=== PATIENT | male | born 1985 | race Two or more races ===

== ENCOUNTER 2016-03-21 08:42 | Emergency (ER) | payer MEDICAID ==
[~2016-03-21] VITALS: Ht 175.3 cm; Wt 167.8 kg
[~2016-03-21 08:42] MED LIST: FUROSEMIDE20 M1 ORAL
[2016-03-21 08:50] VITALS: BP 139/94
--- NOTE | 2016-03-21 09:10 | Emergency Room Report ---
History of Present Illness General Chief Complaint: Eye Problems Source: Patient Present Illness HPI Patient present with complaints of discomfort to the right eye Symptoms essentially started on Monday he was feeling some increased pressure in the right fore head Patient went to sleep and it better the next day however he felt pain more just behind the right eye He states that when the pain comes on he feels that his vision gets somewhat blurry He is able to close the eye and after a few minutes the vision has improved along with the discomfort Denies any bulging of his eye denies any other headache at this time denies any fall or trauma Denies any chemical exposure Allergies: Coded Allergies: No Known Allergies (Unverified , 01/19/14) Patient History Past Medical History: see triage record Pertinent Family History: none Reviewed Nursing Documentation: PMH: Agreed, PSxH: Agreed Nursing Documentation-PMH Hx Hypertension: Yes - NON-COMPLIANT WITH MEDS Review of Systems All Other Systems: negative except mentioned in HPI Physical Exam Vital Signs Date Time Temp Pulse Resp B/P Pulse Ox O2 Delivery O2 Flow Rate FiO2 03/21/16 08:44 98.4 77 16 142/93 97 Room Air Sp02 EP Interpretation: reviewed, normal General Appearance: well appearing, no apparent distress Head: normocephalic, atraumatic Eyes: bilateral eye EOMI, bilateral eye PERRL ENT: normal pharynx, no angioedema Neck: full range of motion, supple Respiratory: lungs clear Musculoskeletal: normal inspection Neurologic: normal inspection, alert, oriented x3, responsive, top ironer III-XII nml as tested Skin: no rash, warm/dry Lymphatic: no adenopathy Medical Decision Making Diagnostic Impression: Primary Impression: Eye problem Additional Impressions: Headache Blurry vision, right eye ER Course Given the patient's history and exam patient had a visual acuity of 20/20 on the right side as well No signs of any erythema or bulging of the right eye Clinically extraocular motors are intact as well Patient was discussed about possible sinus pathology as well he does have some sinus issues he states I do not feel that emergency CAT scan imaging of the brain would be appropriate Patient does not have any history of diabetes And at this time stable for close outpatient followup Last Vital Signs Date Time Temp Pulse Resp B/P Pulse Ox O2 Delivery O2 Flow Rate FiO2 03/21/16 08:50 98.0 92 16 139/94 99 Room Air Status: unchanged Disposition: HOME, SELF-CARE Condition: Stable Referrals: NOT CHOSEN IPA/MD,REFERRING (PCP) Additional Instructions: Patient is provided with the discharge instructions notified to follow up with primary doctor in the next 2-3 days otherwise return to the er with any worsening symptoms. SUE LEI D.O. Mar 21, 2016 09:10
[2016-03-21 09:14] VITALS: BP 139/94
== END 2016-03-21 09:14 | disposition home or self-care (01) ==
LOC: EMR 09:03
DX: H53.8 Other visual disturbances (principal); R51 Headache; I10 Essential (primary) hypertension; Z91.19 Patient's noncompliance with other medical treatment and regimen
CPT/HCPCS: 99282

== ENCOUNTER 2017-11-30 08:55 | Emergency (ER) | payer SELFPAY ==
[~2017-11-30] VITALS: Ht 167.6 cm; Wt 145.1 kg
[2017-11-30 09:08] VITALS: BP 161/106
[2017-11-30] MEDS ORDERED: Ketorolac 30mg Inj IM ONE (09:15)
[2017-11-30] MEDS ORDERED: Methocarbamol 750mg tab ORAL ONE (09:15)
--- NOTE | 2017-11-30 09:52 | Emergency Room Report ---
History of Present Illness General Chief Complaint: Pain Source: Patient Present Illness HPI 32-year-old male presents ED complaining of right leg pain. Started 3 days ago. Denies trauma. Notes pain in his right leg right thigh and lower back. Pain is dull/cramping, 9 out of 10, nonradiating. Denies any swelling. Denies any fevers or chills. Denies chest pain or shortness of breath. No other aggravating relieving factors. Denies any other associated symptoms Allergies: Coded Allergies: No Known Allergies (Unverified , 01/19/14) Patient History Past Medical History: HTN Past Surgical History: none Pertinent Family History: none Social History: Denies: smoking, alcohol use, drug use Immunizations: UTD Reviewed Nursing Documentation: PMH: Agreed; PSxH: Agreed Nursing Documentation-PMH Hx Hypertension: Yes Review of Systems All Other Systems: negative except mentioned in HPI Physical Exam Vital Signs Date Time Temp Pulse Resp B/P (MAP) Pulse Ox O2 Delivery O2 Flow Rate FiO2 11/30/17 09:03 98.8 87 22 161/106 96 Room Air 98.8 Sp02 EP Interpretation: reviewed, normal General Appearance: no apparent distress, alert, GCS 15, non-toxic, obese Head: normocephalic, atraumatic ENT: normal ENT inspection Neck: normal inspection Respiratory: chest non-tender, lungs clear, normal breath sounds, speaking full sentences Cardiovascular #1: normal inspection Gastrointestinal: normal inspection Rectal: deferred Genitourinary: no CVA tenderness Musculoskeletal: normal range of motion, no calf tenderness, other - paraspinal lumbar tenderness, tender - RLE Neurologic: alert, oriented x3, responsive, motor strength/tone normal, sensory intact, speech normal Psychiatric: normal inspection Skin: normal inspection Lymphatic: normal inspection Medical Decision Making Diagnostic Impression: Primary Impression: Muscle strain ER Course Hospital Course 32-year-old male presents with right leg and back pain. No trauma Differential diagnoses include: DVT, contusion, strain Clinical course Patient placed on stretcher after initial history, physical exam reveals an obese male in no acute distress. There is no obvious deformity or crepitus or bruising to the right lower extremity. No appreciable Swelling compared to the left side. However patient is morbidly obese at bedside they she is concerned about a blood clot. Asking for an ultrasound. I agreed to perform a duplex ultrasound here Doppler ultrasound shows no evidence of DVT Likely Strain. Reassurance given. will discharge with motrin, robaxin I. I feel this is a highly complex case requiring extensive working including EKG/Rhythm strip, Xray/CT/US, Blood/urine lab work, repeat exams while in ED, and administration of strong opiates/narcotics for pain control, admission to hospital or close patient follow up. Diagnosis - muscle strain Stable and discharged to home with Rx Tylenol #3, Robaxin. Followup with PMD. Return to ED if symptoms recur or worsen CT/MRI/US Diagnostic Results CT/MRI/US Diagnostic Results : Imaging Test Ordered: Duplex US Impression no evidence of DVT Last Vital Signs Date Time Temp Pulse Resp B/P (MAP) Pulse Ox O2 Delivery O2 Flow Rate FiO2 11/30/17 09:21 98.8 11/30/17 09:08 97 22 161/106 96 Room Air Status: improved Disposition: HOME, SELF-CARE Condition: Stable Scripts Methocarbamol* (ROBAXIN-750*) 750 Mg Tablet 750 MG PO TID, #21 TAB 0 Refills Prov: Jose Juan Bonilla MD 11/30/17 Acetaminophen With Codeine (T#3) (TYLENOL #3 TAB*) Y Tab 1 TAB ORAL Q8H PRN for For Pain, #20 TAB Prov: Jose Juan Bonilla MD 11/30/17 Referrals: NOT CHOSEN [facility]/,REFERRING (PCP) Jose Juan Bonilla MD Nov 30, 2017 09:52
[2017-11-30] MEDS ORDERED: ACETAMINOPHEN-1 EAC1 ORAL (10:41)
[2017-11-30] MEDS ORDERED: ROBAXIN-750750 MG PO (10:41)
[2017-11-30 10:50] VITALS: BP 58/98
--- NOTE | 2017-11-30 11:19 | Diagnostic Imaging Report ---
Indication: Right lower extremity pain and swelling. Technique: Duplex Doppler imaging performed from the right common femoral vein to the popliteal vein. FINDINGS: Normal compressibility demonstrated from the common femoral vein to the popliteal vein. Respiratory phasicity and good augmentation demonstrated on waveform analysis. There is no evidence of thrombosis. IMPRESSION: No evidence of deep venous thrombosis within the right lower extremity.
== END 2017-11-30 10:51 | disposition home or self-care (01) ==
LOC: EMR 09:15 → EDUNIT# 09:15 → EMR 10:51
DX: S76.911A Strain of unspecified muscles, fascia and tendons at thigh level, right thigh, initial encounter (principal); X58.XXXA Exposure to other specified factors, initial encounter; Y92.9 Unspecified place or not applicable; I10 Essential (primary) hypertension
CPT/HCPCS: 93971; 96372; 99283; J1885

== ENCOUNTER 2020-02-23 23:04 | Emergency (ER) | payer MEDICAID ==
[~2020-02-23] VITALS: Ht 175.3 cm; Wt 145.1 kg
[~2020-02-23 23:04] MED LIST changes: +ACETAMINOPHEN-1 EAC1 ORAL; +ROBAXIN-750750 MG PO
--- NOTE | 2020-02-23 23:15 | NUR ---
ED Nurse Note: Pt walked in c/o pain on his penis since 2 days ago. Pt stated "I may be have a tear, I notice bleeding". PT stated burning while urination, penial discharge. changed into gown; attached to monitor. patient ao4 with no acute distress. hypertensive. history of htn; non compliant with medication. all safety measures met.
[2020-02-23 23:20] VITALS: BP 188/119
--- NOTE | 2020-02-23 23:20 | NUR ---
ED Nurse Note: iv access established. blood an urine collected; sent down to lab.
--- NOTE | 2020-02-23 23:22 | Emergency Room Report ---
History of Present Illness General Chief Complaint: Male Urogenital Problems Source: Patient Present Illness HPI This is a 35-year-old male with a history of borderline diabetes and high blood pressure. He ran out of his blood pressure medication for a few months now. He also gained about 30 to 40 pounds in the last year. He presents with chief complaint of dysuria and pain to the foreskin. Is been ongoing for the last few days. Has a hard time retracting his foreskin. There is tearing in that area. Painful with urination. He also has polyuria, polydipsia and nocturia. Denies any fever or chills. Denies any discharge. He is not sexually active. Allergies: Coded Allergies: No Known Allergies (Unverified , 01/19/14) COVID-19 Screening Contact w/high risk pt: No Experienced COVID-19 symptoms?: No COVID-19 Testing performed SENIOR SALES ASSISTANT: No Patient History Past Medical History: see triage record, old chart reviewed, HTN Past Surgical History: none Pertinent Family History: none Social History: Denies: smoking Immunizations: other Reviewed Nursing Documentation: PMH: Agreed; PSxH: Agreed Nursing Documentation-PMH Hx Hypertension: Yes Review of Systems Eye: Denies: eye pain, blurred vision ENT: Denies: ear pain, nose congestion, throat swelling Respiratory: Denies: cough, shortness of breath Cardiovascular: Denies: chest pain, palpitations Gastrointestinal: Denies: abdominal pain, diarrhea, nausea, vomiting Genitourinary: Reports: dysuria, frequency, pain, urgency Musculoskeletal: Denies: back pain, joint pain Skin: Denies: rash Neurological: Denies: headache, numbness Endocrine: Denies: increased thirst, increased urine Hematologic/Lymphatic: Denies: easy bruising All Other Systems: negative except mentioned in HPI Physical Exam Vital Signs Date Time Temp Pulse Resp B/P (MAP) Pulse Ox O2 Delivery O2 Flow Rate FiO2 02/23/20 23:08 98.8 98 16 188/119 (142) 97 Room Air Vitals with high blood pressure Sp02 EP Interpretation: reviewed, normal General Appearance: well appearing, no apparent distress, alert, obese Head: normocephalic, atraumatic Eyes: bilateral eye PERRL, bilateral eye EOMI ENT: hearing grossly normal, normal pharynx Neck: full range of motion, supple, no meningismus Respiratory: chest non-tender, lungs clear, normal breath sounds Cardiovascular #1: regular rate, rhythm, no murmur Gastrointestinal: normal bowel sounds, non tender, no mass, no organomegaly, no bruit, non-distended Genitourinary: other - Patient is uncircumcised. Foreskin show irritation, skin tear, redness. Able to retract foreskin but very tender. Musculoskeletal: back normal, normal range of motion, gait/station normal Psychiatric: mood/affect normal Medical Decision Making Diagnostic Impression: Primary Impression: UTI (urinary tract infection) Qualified Codes: N30.00 - Acute cystitis without hematuria Additional Impressions: Balanitis Hypertension Qualified Codes: I10 - Essential (primary) hypertension Diabetes type 2, uncontrolled Qualified Codes: E11.65 - Type 2 diabetes mellitus with hyperglycemia Morbid obesity with BMI of 45.0-49.9, adult ER Course This patient presents with urinary complaint is consistent with UTI and balanitis. This probably secondary to his uncontrolled diabetes. He also has hypertension that is uncontrolled because he has been out of his medication. No evidence of endorgan damage. Will discharge home. Last Vital Signs Date Time Temp Pulse Resp B/P (MAP) Pulse Ox O2 Delivery O2 Flow Rate FiO2 02/23/20 23:08 98.8 98 16 188/119 (142) 97 Room Air Status: improved Disposition: HOME, SELF-CARE Condition: Stable Scripts Nystatin* (NYSTATIN*) 15 Gm Cream..g. 1 APPLIC TOPIC THREE TIMES A DAY, #15 GM Prov: Chuy Messina MD 02/24/20 Cephalexin* (KEFLEX*) 500 Mg Capsule 500 MG ORAL TID, #21 CAP Prov: Chuy Messina MD 02/24/20 Fluconazole* (DIFLUCAN*) 100 Mg Tablet 100 MG ORAL DAILY, #7 TAB Prov: Chuy Messina MD 02/24/20 Metformin Hcl* (METFORMIN HCL*) 500 Mg Tablet 500 MG ORAL TWICE A DAY, #180 TAB Prov: Chuy Messina MD 02/24/20 Lisinopril* (LISINOPRIL*) 40 Mg Tablet 40 MG ORAL DAILY for Hypertension, #90 TAB Prov: Chuy Messina MD 02/24/20 Patient Instructions: Urinary Tract Infection Additional Instructions: Follow-up with your doctor in 7 days for recheck. Return if symptoms worsen. Chuy Messina MD Feb 23, 2020 23:22
[2020-02-23 23:46] LABS: BASOPHILS % (AUTO) 1.5 % (0.0-2.0); EOSINOPHILS % (AUTO) 6.4 % (0.0-3.0); HEMATOCRIT 45.3 % (42.0-52.0); HEMOGLOBIN 16.9 G/DL (14.2-18.0); MEAN CORPUSCULAR VOLUME 78 FL (80-99); MONOCYTES % (AUTO) 10.6 % (1.0-10.0); NEUTROPHILS % (AUTO) 59.5 % (45.0-75.0); PLATELET COUNT 185 K/UL (150-450); RED BLOOD COUNT 5.78 M/UL (4.70-6.10); RED CELL DISTRIBUTION WIDTH 13.1 % (11.6-14.8); WHITE BLOOD COUNT 9.5 K/UL (4.8-10.8)
[2020-02-23 23:47] LABS: BILIRUBIN, URINE NEGATIVE (NEGATIVE); GLUCOSE, URINE (UA) 4+ (NEGATIVE); KETONES,URINE NEGATIVE (NEGATIVE); LEUKOCYTE ESTERASE ,URINE 3+ (NEGATIVE); NITRITE,URINE NEGATIVE (NEGATIVE); PH,URINE 5 (4.5-8.0); PROTEIN,URINE 3+ (NEGATIVE); UROBILINOGEN,URINE 4 MG/DL (0.0-1.0)
[2020-02-23 23:57] LABS: ANION GAP 8 mmol/L (5-15); BLOOD UREA NITROGEN 7 mg/dL (7-18); CALCIUM 8.4 MG/DL (8.5-10.1); CARBON DIOXIDE 25 MMOL/L (21-32); CHLORIDE 99 MMOL/L (98-107); SODIUM 132 MMOL/L (136-145)
[2020-02-23 23:58] LABS: APPEARANCE,URINE SLIGHTLY CLOUDY; COLOR,URINE YELLOW
[2020-02-24] MEDS ORDERED: NYSTATIN15 GM TOPIC (00:09)
[2020-02-24] MEDS ORDERED: METFORMIN HCL500 M1 ORAL (00:09)
[2020-02-24] MEDS ORDERED: CEPHALEXIN500 MG ORAL (00:09)
[2020-02-24] MEDS ORDERED: DIFLUCAN100 MG ORAL (00:09)
[2020-02-24] MEDS ORDERED: LISINOPRIL40 MG ORAL (00:09)
[2020-02-24] MEDS ORDERED: Insulin Human Regular 100units/ml 3ml SUBQ ONE (00:15)
[2020-02-24] MEDS ORDERED: cefTRIAXone 1 GM in NS 55 ML IVPB ONE (00:15)
[2020-02-24 00:45] VITALS: BP 145/67
--- NOTE | 2020-02-24 00:45 | NUR ---
ER DISCHARGE NOTE: Patient is cleared to be discharged per ERMD, pt is aox4, on room air, with stable vital signs. pt was given dc and prescription instructions, pt was able to verbalize understanding, pt id band and iv site removed without complications. pt is able to ambulate with steady gait. pt took all belongings.
== END 2020-02-24 00:45 | disposition home or self-care (01) ==
LOC: EMR 23:20
DX: N30.00 Acute cystitis without hematuria (principal); N48.1 Balanitis; I10 Essential (primary) hypertension; E11.65 Type 2 diabetes mellitus with hyperglycemia; E66.01 Morbid (severe) obesity due to excess calories; Z68.42 Body mass index [BMI] 45.0-49.9, adult
CPT/HCPCS: 36415; 80048; 81001; 85025; 87086; 96361; 96365; J0696; J7030; Z7502; 99284

== ENCOUNTER 2020-03-02 14:42 | Emergency (ER) | payer OTHER, MEDICAID ==
[~2020-03-02] VITALS: Ht 175.3 cm; Wt 149.7 kg
[~2020-03-02 14:42] MED LIST changes: +CEPHALEXIN500 MG ORAL; +DIFLUCAN100 MG ORAL; +LISINOPRIL40 MG ORAL; +METFORMIN HCL500 M1 ORAL; +NYSTATIN15 GM TOPIC
[2020-03-02] MEDS ORDERED: Ketorolac 30mg Inj IV ONE (15:15)
--- NOTE | 2020-03-02 15:16 | Emergency Room Report ---
History of Present Illness General Chief Complaint: Abdominal Pain Source: Patient Present Illness HPI 35-year-old male who is morbidly obese and has history of type 2 diabetes and hypertension currently taking medication here complaining of left-sided testicular, penile and suprapubic pain radiating to left lower quadrant and lower back x3 days. Patient was last seen in [place] ER 1 week ago for UTI and balanitis. Patient currently under treatment. Denies any fever chills, constipation, bloody stools, nausea vomiting diarrhea. Denies eating heavy objects. Patient appears to have guarding left lower quadrant. No obvious testicular swelling noted. Has not taken medication for symptom relief. Denies any penile discharge. Allergies: Coded Allergies: No Known Allergies (Unverified , 01/19/14) COVID-19 Screening Contact w/high risk pt: No Experienced COVID-19 symptoms?: No COVID-19 Testing performed REGISTERED VETERINARY TECHNICIAN: No Patient History Past Medical History: see triage record Past Surgical History: none Pertinent Family History: none Reviewed Nursing Documentation: PMH: Agreed; PSxH: Agreed Nursing Documentation-PMH Hx Hypertension: Yes Hx Diabetes: Yes Review of Systems All Other Systems: negative except mentioned in HPI Physical Exam Vital Signs Date Time Temp Pulse Resp B/P (MAP) Pulse Ox O2 Delivery O2 Flow Rate FiO2 03/02/20 14:47 98.8 95 19 132/84 (100) 98 Room Air Sp02 EP Interpretation: reviewed, normal General Appearance: mild distress Head: normocephalic, atraumatic Eyes: bilateral eye normal inspection, bilateral eye PERRL ENT: no angioedema Neck: full range of motion, supple/symm/no masses Respiratory: no respiratory distress, no retraction, no accessory muscle use Cardiovascular #1: regular rate, rhythm Gastrointestinal: no mass, no organomegaly, no peritonitis, no bruit, non- distended, no rebound, guarding - Left lower quadrant Genitourinary: no CVA tenderness Musculoskeletal: back normal Neurologic: alert, motor strength/tone normal, oriented x3, sensory intact, responsive, speech normal Psychiatric: judgement/insight normal, memory normal, mood/affect normal, no suicidal/homicidal ideation Skin: no rash Lymphatic: no adenopathy Medical Decision Making PA Attestation All diagnoses and treatment plans were reviewed and discussed with my supervising physician Dr. Joshi Diagnostic Impression: Primary Impression: Lymphadenopathy, inguinal Additional Impression: Diverticulosis ER Course 35-year-old male who is morbidly obese and has history of type 2 diabetes and hypertension currently taking medication here complaining of left-sided testicular, penile and suprapubic pain radiating to left lower quadrant and lower back x3 days. Patient was last seen in [place] ER 1 week ago for UTI and balanitis. Patient currently under treatment. Denies any fever chills, constipation, bloody stools, nausea vomiting diarrhea. Denies eating heavy objects. Patient appears to have guarding left lower quadrant. No obvious testicular swelling noted. Has not taken medication for symptom relief. Denies any penile discharge. Ddx considered but are not limited to: appendicitis, cholecystis, gastritis, gastroenteritis, UTI, pyelonephritis, SBO, diverticulitis, pancreatitis, epididymitis, inguinal hernia, reducible inguinal hernia Vital signs: are WNL, pt. is afebrile H&PE are most consistent with: Inguinal lymphadenopathy, diverticulosis without diverticulitis ORDERS: abdominal CT, abdominal pain set, scrotal ultrasound, ibuprofen ED INTERVENTIONS: Toradol DISCHARGE: At this time pt. is stable for d/c to home. Will provide printed patient care instructions, and any necessary prescriptions. Care plan and follow up instructions have been discussed with the patient prior to discharge. Take medication as directed, avoid lifting heavy objects, follow primary care provider for further evaluation, if worsening symptoms return to the emergency room at this time lymphadenopathy can be due to inflammatory disease versus infectious versus metastatic concern which need to follow-up with your primary doctor in this regard. Increase fiber intake CT/MRI/US Diagnostic Results CT/MRI/US Diagnostic Results #1: Imaging Test Ordered: Scrotal ultrasound Impression Comparison: Reference made to CT scan performed subsequently Findings:The right testicle measures 3.9cm in length. It demonstrates normal echogenicity. Normal Doppler flow. Normal epididymis. There is questionably a minimal varicocele. There is a small hydrocele The left testicle measures 4.1 cm in length. It demonstrates normal echogenicity and normal Doppler flow. Normal epididymis. Questionable minimal varicocele. There is a small hydrocele A large lymph node is seen in the left inguinal region, measuring 4 x 2 x 4.5 cm. Smaller but prominent lymph nodes are also seen on the left Impression: Normal testicles. No evidence of torsion or other acute pathology CT/MRI/US Diagnostic Results #2: Imaging Test Ordered: CT Abd pelvis w/o contrast Impression Bilateral inguinal lymphadenopathy remains on left side Findings: Lack of enteric contrast limits assessment of the GI tract. The appendix is normal. There are colonic diverticula. No evidence of diverticulitis. No small bowel distention. No free or loculated intraperitoneal gas or fluid is evident. There is bilateral inguinal lymphadenopathy. The largest node is on the left, measures 4.2 cm long axis dimension and 2.5 cm short axis dimension, and demonstrates loss of the normal architecture. Nodes are overall larger on the left than on the right. There is infiltration of the fat surrounding the lymph nodes on both sides, more extensive on the left than on the right. No fluid collection is evident. There is also bilateral iliac chain adenopathy, with larger nodes on the left than on the right, largest node measuring 3.4 cm long axis dimension. No retroperitoneal lymphadenopathy is demonstrated. There are prominent bordering on enlarged peripancreatic nodes. Uncertain as to whether this is a new finding as this area was not included in the previous imaging volume. The spleen is mildly enlarged, measuring 15 cm long axis dimension. Lack of IV contrast limits assessment of the solid organs. The liver is grossly unremarkable. The gallbladder appears to be packed with gallstones. No biliary ductal dilatation. The pancreas, adrenals, kidneys are unremarkable. The pelvic viscera are unremarkable.. The included lung bases demonstrate some atelectasis on the right as well as numerous tiny nodules in the right lower lobe. The bones are unremarkable. Impression: Bilateral left greater than right inguinal and iliac chain lymphadenopathy, with inflammatory changes seen surrounding the inguinal nodes. This could be due to a lymphoproliferative disorder, could represent metastatic lymphadenopathy, or could indicate infectious or noninfectious inflammatory lymphadenopathy, among other possibilities Mild splenomegaly, suspect related to the above Borderline enlarged peripancreatic nodes Right lower lobe basilar pulmonary atelectasis. A few small nodules could be inflammatory or postinflammatory or infectious. Limited assessment of the GI tract, due to lack of enteric contrast administration Colonic diverticulosis. No evidence of diverticulitis Last Vital Signs Date Time Temp Pulse Resp B/P (MAP) Pulse Ox O2 Delivery O2 Flow Rate FiO2 03/02/20 14:47 98.8 95 19 132/84 (100) 98 Room Air Disposition: HOME, SELF-CARE Condition: Stable Patient Instructions: Lymphadenopathy Additional Instructions: Take medication as directed, avoid lifting heavy objects, follow primary care provider for further evaluation, if worsening symptoms return to the emergency room at this time lymphadenopathy can be due to inflammatory disease versus infectious versus metastatic concern which need to follow-up with your primary doctor in this regard. Increase fiber intake Brendan Luong Mar 02, 2020 15:16
[2020-03-02 15:19] VITALS: BP 132/84
[2020-03-02 15:22] LABS: BASOPHILS % (AUTO) 1.5 % (0.0-2.0); EOSINOPHILS % (AUTO) 7.4 % (0.0-3.0); HEMATOCRIT 46.7 % (42.0-52.0); LYMPHOCYTES % (AUTO) 20.6 % (20.0-45.0); MEAN CORPUSCULAR VOLUME 90 FL (80-99); MONOCYTES % (AUTO) 8.8 % (1.0-10.0); NEUTROPHILS % (AUTO) 61.7 % (45.0-75.0); PLATELET COUNT 263 K/UL (150-450); RED CELL DISTRIBUTION WIDTH 11.5 % (11.6-14.8); WHITE BLOOD COUNT 11.4 K/UL (4.8-10.8)
--- NOTE | 2020-03-02 15:23 | NUR ---
ED Nurse Note: Patient walked in to ED c/o left lower abdominal pain x3 days ago. Denies n/v/d. Pt also c/o lower back pain. Denies fall/ injury. Patient AAO x4, VSS at this time.
--- NOTE | 2020-03-02 15:24 | NUR ---
ED Nurse Note: US by bed side
[2020-03-02 15:42] LABS: ANION GAP 5 mmol/L (5-15); BLOOD UREA NITROGEN 9 mg/dL (7-18); CALCIUM 9.3 MG/DL (8.5-10.1); CARBON DIOXIDE 30 MMOL/L (21-32); CHLORIDE 102 MMOL/L (98-107); POTASSIUM 4.1 MMOL/L (3.5-5.1); SODIUM 137 MMOL/L (136-145)
[2020-03-02 15:46] LABS: ALANINE AMINOTRANSFERASE 24 U/L (12-78); ALBUMIN/GLOBULIN RATIO 0.5 (1.0-2.7); ALKALINE PHOSPHATASE 81 U/L (46-116); ASPARTATE AMINO TRANSFERASE 26 U/L (15-37); BILIRUBIN,TOTAL 0.3 MG/DL (0.2-1.0)
[2020-03-02 15:58] LABS: APPEARANCE,URINE SLIGHTLY CLOUDY; BILIRUBIN, URINE NEGATIVE (NEGATIVE); GLUCOSE, URINE (UA) NEGATIVE (NEGATIVE); KETONES,URINE NEGATIVE (NEGATIVE); NITRITE,URINE NEGATIVE (NEGATIVE); PH,URINE 5 (4.5-8.0); PROTEIN,URINE 2+ (NEGATIVE); UROBILINOGEN,URINE 1 MG/DL (0.0-1.0)
[2020-03-02 16:21] LABS: COLOR,URINE YELLOW; LEUKOCYTE ESTERASE ,URINE 1+ (NEGATIVE)
--- NOTE | 2020-03-02 16:36 | Diagnostic Imaging Report ---
Indication: Left lower quadrant pain Technique: Spiral acquisitions obtained through the abdomen and pelvis. No oral contrast utilized, per emergency room physician request No IV contrast utilized, per referring physician request.. Multiplanar reconstructions were generated. Total dose length product 1831 mGycm. CTDIvol(s) 28 mGy. Dose reduction achieved using automated exposure control Comparison: 12/19/2005 Findings: Lack of enteric contrast limits assessment of the GI tract. The appendix is normal. There are colonic diverticula. No evidence of diverticulitis. No small bowel distention. No free or loculated intraperitoneal gas or fluid is evident. There is bilateral inguinal lymphadenopathy. The largest node is on the left, measures 4.2 cm long axis dimension and 2.5 cm short axis dimension, and demonstrates loss of the normal architecture. Nodes are overall larger on the left than on the right. There is infiltration of the fat surrounding the lymph nodes on both sides, more extensive on the left than on the right. No fluid collection is evident. There is also bilateral iliac chain adenopathy, with larger nodes on the left than on the right, largest node measuring 3.4 cm long axis dimension. No retroperitoneal lymphadenopathy is demonstrated. There are prominent bordering on enlarged peripancreatic nodes. Uncertain as to whether this is a new finding as this area was not included in the previous imaging volume. The spleen is mildly enlarged, measuring 15 cm long axis dimension. Lack of IV contrast limits assessment of the solid organs. The liver is grossly unremarkable. The gallbladder appears to be packed with gallstones. No biliary ductal dilatation. The pancreas, adrenals, kidneys are unremarkable. The pelvic viscera are unremarkable.. The included lung bases demonstrate some atelectasis on the right as well as numerous tiny nodules in the right lower lobe. The bones are unremarkable. Impression: Bilateral left greater than right inguinal and iliac chain lymphadenopathy, with inflammatory changes seen surrounding the inguinal nodes. This could be due to a lymphoproliferative disorder, could represent metastatic lymphadenopathy, or could indicate infectious or noninfectious inflammatory lymphadenopathy, among other possibilities Mild splenomegaly, suspect related to the above Borderline enlarged peripancreatic nodes Right lower lobe basilar pulmonary atelectasis. A few small nodules could be inflammatory or postinflammatory or infectious. Limited assessment of the GI tract, due to lack of enteric contrast administration Colonic diverticulosis. No evidence of diverticulitis The CT scanner at [facility] is accredited by the [employer] and the scans are performed using protocols designed to limit radiation exposure to as low as reasonably achievable to attain images of sufficient resolution adequate for diagnostic evaluation.
--- NOTE | 2020-03-02 16:38 | Diagnostic Imaging Report ---
Indications: Left-sided inguinal and scrotal pain Technique: Grayscale and duplex images of the scrotum Comparison: Reference made to CT scan performed subsequently Findings:The right testicle measures 3.9cm in length. It demonstrates normal echogenicity. Normal Doppler flow. Normal epididymis. There is questionably a minimal varicocele. There is a small hydrocele The left testicle measures 4.1 cm in length. It demonstrates normal echogenicity and normal Doppler flow. Normal epididymis. Questionable minimal varicocele. There is a small hydrocele A large lymph node is seen in the left inguinal region, measuring 4 x 2 x 4.5 cm. Smaller but prominent lymph nodes are also seen on the left Impression: Normal testicles. No evidence of torsion or other acute pathology Enlarged bilateral inguinal nodes, left greater than right. Please refer to separate CT report Incidental findings of minimal bilateral varicoceles, small bilateral hydroceles
[2020-03-02] MEDS ORDERED: IBUPROFEN600 M1 ORAL (16:42)
[2020-03-02 16:49] VITALS: BP 132/84
--- NOTE | 2020-03-02 16:50 | NUR ---
ED Nurse Note: Pt cleared by health care Provider for discharge. DC instructions/prescription was given and explained to pt and verbalized understanding of teachings. All medical deviecs such as ID and IV band removed. Pt is AAO x4, ambulatory and left with all personal belongings.
== END 2020-03-02 16:51 | disposition home or self-care (01) ==
LOC: EMR 15:09
DX: R59.0 Localized enlarged lymph nodes (principal); K57.30 Diverticulosis of large intestine without perforation or abscess without bleeding; I10 Essential (primary) hypertension; E11.9 Type 2 diabetes mellitus without complications; E66.01 Morbid (severe) obesity due to excess calories; Z68.42 Body mass index [BMI] 45.0-49.9, adult; N43.3 Hydrocele, unspecified; I86.1 Scrotal varices; R16.1 Splenomegaly, not elsewhere classified
CPT/HCPCS: 36415; 74176; 76870; 80053; 80307; 81003; 83690; 85025; 96374; 99284; J1885